=== PATIENT | male | born 1945 | race Caucasian/White ===

== ENCOUNTER → 2016-12-27 | Outpatient (CLI) | payer MEDICARE, OTHER ==
[~2016-12-27] MED LIST: AMLO5TAB2 PO; ASP325T PO; ASPI-999 PO; FOSI40TA2 PO; HCT25T PO; NEBI20TA2 PO; OMEG1CAP77 PO; PRV20T PO; UBID100C27 PO
--- OUTSIDE RECORDS SUMMARY | 2016-12-27 13:31 | XMS REPORT | Continuity of Care Document ---
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 Medications Current Home Medications Medication Dose Units Route Directions Days/Qty Instructions Start Date Nebivolol Hcl 20 Mg 20 Mg Oral Daily 04/03/12 Amlodipine Besylate (Norvasc 5 Mg) 5 Mg 5 Mg Oral Daily 04/03/12 Pravastatin Sod 20 Mg 20 Mg Oral Daily 04/03/12 Ubidecarenone 100 Mg 100 Mg Oral Daily 04/03/12 [place]-3/Dha/Epa/Fish Oil 1 Each 1 Each Oral Four Times Daily Aspirin 81 Mg 81 Mg Oral Daily 06/23/16 Past Home Medications Medication Directions Ordered Status Hydrochlorothiazide 25 Mg Tab, 25 Mg Oral Daily 04/03/12 Discontinued Fosinopril Sodium 40 Mg Tablet, 40 Mg Oral Daily 04/03/12 Discontinued Aspirin 325 Mg Tab, 325 Mg Oral Daily 04/03/12 Discontinued Social History Social History Problem Response Recorded Date/Time Recent Foreign Travel No 06/29/2016 9:58am Recent Infectious Disease Exposure No 06/29/2016 9:58am Smoking Status Never a Smoker 06/29/2016 9:56am Query Response Start Date Stop Date Smoking Status Never a Smoker Hospital Discharge Instructions Patient Instructions Physician Instructions Plan of Care/Instructions/FU: Follow up with Dr. Pulido in 2-3 weeks Activity as Tolerated: Yes Discharge Diet: No Restrictions Care Plan Patient Instructions:: Follow up with Dr. Pulido in 2-3 weeks Plan of Care Discharge Date 06/29/16 1:20pm Instructions/Education Provided ANESTHESIA INSTRUCTIONS POSTOP COLONOSCOPY EGD-ESOPHAGOGASTRODUODENOSCOPY Prescriptions See Medication Section Functional Status No functional status results. Allergies, Adverse Reactions, Alerts Allergen Type Severity Reaction Status Last Updated Sulfa (Sulfonamide Antibiotics) ([id number]) Allergy Unknown Active Immunizations No immunization records. Vital Signs Acute Vital Signs Vital Response Date/Time Temperature (Fahrenheit) 97.2 degrees F (97.6 - 99.5) 06/29/2016 1:20pm Temperature (Calculated Celsius) 36.39662 degrees C (36.4 - 37.5) 06/29/2016 1:20pm Temperature Source Tympanic 06/29/2016 1:20pm Pulse Rate (adult) 50 bpm (60 - 90) 06/29/2016 1:20pm Respiratory Rate 18 bpm (12 - 24) 06/29/2016 1:20pm O2 Sat by Pulse Oximetry 98 % (88 - 100) 06/29/2016 1:20pm Blood Pressure 158/88 mm Hg 06/29/2016 1:20pm Pain Numeric Pain Scale 0-No Pain 06/29/2016 1:20pm Pain Intensity 0 06/29/2016 1:10pm Height (Feet) 5 feet 06/29/2016 9:56am Height (Inches) 7.00 inches 06/29/2016 9:56am Height (Calculated Centimeters) 170.700742 cm 06/29/2016 9:56am Weight (Pounds) 166 pounds 06/29/2016 9:56am Weight (Ounces) 0.0 oz 06/29/2016 9:56am Weight (Calculated Grams) 97819.33 gm 06/29/2016 9:56am Weight (Calculated Kilograms) 75.554676 kilograms 06/29/2016 9:56am Calculated BMI 26.0 06/29/2016 9:56am Results No known relevant diagnostic tests, laboratory data and/or discharge summary. Procedures Procedure Status Date Provider(s) Esophagogastroduodenoscopy (EGD) Completed 06/29/16 GILMER PULIDO DO Anesthesia for 30 minutes Active 06/29/16 GILMER PULIDO DO Encounters Encounter Location Arrival/Admit Date Discharge/Depart Date Attending Provider [facility]istered [facility] 06/29/16 9:33am GILMER PULIDO DO Departed Clinic [facility] 06/23/16 5:34am 06/23/16 2: 06pm GILMER PULIDO DO
[2016-12-27 14:21] LABS: ALBUMIN 4.3 G/DL (3.2-4.5); BILIRUBIN,TOTAL 0.6 MG/DL (0.1-1.0); CREATININE SERUM 1.65 MG/DL (0.60-1.30); POTASSIUM 3.9 MMOL/L (3.6-5.0); TOTAL PROTEIN 7.1 G/DL (6.4-8.2)
--- NOTE | 2016-12-27 14:33 | Diagnostic Imaging Report ---
EXAMINATION: PA and lateral views of the chest. INDICATION: Carotid artery disease. Hypertension. FINDINGS: The lungs are hyperinflated but clear. The heart size is slightly enlarged. There is no effusion or pneumothorax. The mediastinum and fany appear unremarkable. There are sternotomy wires noted. IMPRESSION: Hyperinflated clear lungs. Borderline cardiomegaly. Dictated by: Dictated on workstation # [id number]
== END ==
LOC: RAD 13:28
PROVIDERS: ATTEND Physician Assistant
DX: I25.10 Atherosclerotic heart disease of native coronary artery without angina pectoris (principal); I65.23 Occlusion and stenosis of bilateral carotid arteries; I10 Essential (primary) hypertension; E78.2 Mixed hyperlipidemia
CPT/HCPCS: 36415; 71020; 80053; 80061

== ENCOUNTER 2017-08-29 09:17 | Outpatient (RCR) | payer MEDICARE, OTHER | END 2017-11-27 | disposition home or self-care (01) | LOC: CARD 09:17 | PROVIDERS: ATTEND Internal Medicine Cardiovascular Disease | DX: I25.10 Atherosclerotic heart disease of native coronary artery without angina pectoris (principal); I65.23 Occlusion and stenosis of bilateral carotid arteries; I10 Essential (primary) hypertension; I27.20 Pulmonary hypertension, unspecified; E78.2 Mixed hyperlipidemia; R07.9 Chest pain, unspecified; D12.6 Benign neoplasm of colon, unspecified | CPT/HCPCS: 93225; 93226 ==

== ENCOUNTER → 2019-04-16 | Outpatient (CLI) | payer MEDICARE, OTHER ==
[~2019-04-16] VITALS: Ht 172.7 cm; Wt 73.0 kg
[~2019-04-16] MED LIST changes: +CATHETER FLUSH 10 ML SYR IV PRN; +REGADENOSON 0.4 MG/5 ML SYR (LEXISCAN) IV ONE
[2019-04-16 09:27] VITALS: BP 152/80
[2019-04-16 09:30] VITALS: BP 149/72
[2019-04-16 09:31] VITALS: BP 151/75
--- NOTE | 2019-04-17 09:01 | ELECTROENCEPHALOPATHY REPORT ---
DATE OF SERVICE: 04/16/2019 LEXISCAN MYOVIEW STRESS TEST REPORT REFERRING PHYSICIAN: INDICATION: Coronary artery disease. Baseline heart rate is 63. Baseline blood pressure 152/80. Baseline EKG is sinus rhythm with no ischemic changes. In summary, the patient was injected with 10.69 mCi of technetium-99 Myoview and the resting images were obtained. Then, the patient received 0.4 mg of Lexiscan followed by 30.6 mCi of technetium-99 Myoview. Throughout the test, there were no EKG changes. The resting and stress images were reviewed and compared in the short axis, horizontal long axis, and vertical long axis views. Review of the images showed diaphragmatic attenuation with good radiotracer uptake, no significant ischemia or infarction was seen. SSS is 1, SDS 1, TID value 1.05. On the gated images, the left ventricle appeared to be normal size with normal contractility. Calculated ejection fraction 59%. CONCLUSION: 1. The patient tolerated Lexiscan well. 2. Diaphragmatic attenuation with no significant ischemia or infarction on SPECT images. 3. Normal left ventricular size with normal contractility. Calculated ejection fraction 59%. Job ID: [id number] DocumentID: [id number] Dictated Date: 04/17/2019 08:32:46 Curb Supervisor Date: 04/17/2019 09:00:31 Dictated By: [place] PIMENTEL MD
== END ==
LOC: CARD 07:57
PROVIDERS: ATTEND Physician Assistant
DX: I25.10 Atherosclerotic heart disease of native coronary artery without angina pectoris (principal); I10 Essential (primary) hypertension; E78.5 Hyperlipidemia, unspecified; I08.3 Combined rheumatic disorders of mitral, aortic and tricuspid valves
CPT/HCPCS: 78452; 93017; 93306

== ENCOUNTER → 2020-04-18 | Outpatient (CLI) | payer MEDICARE, OTHER ==
[~2020-04-18] MED LIST changes: -CATHETER FLUSH 10 ML SYR IV PRN; -REGADENOSON 0.4 MG/5 ML SYR (LEXISCAN) IV ONE
== END ==
LOC: CARD 10:55
PROVIDERS: ATTEND Internal Medicine Cardiovascular Disease
DX: I48.0 Paroxysmal atrial fibrillation (principal); E78.5 Hyperlipidemia, unspecified; I10 Essential (primary) hypertension; I25.10 Atherosclerotic heart disease of native coronary artery without angina pectoris
CPT/HCPCS: 93306

== ENCOUNTER 2020-09-02 16:09 | Observation (INO) | payer MEDICARE, OTHER ==
[~2020-09-02] VITALS: Ht 172.7 cm; Wt 75.7 kg
[2020-09-02] MEDS ORDERED: polyethylene glycoL POWDER 17 GM (MIRALAX) PACK PO PRN (18:15)
[2020-09-02] MEDS ORDERED: ANTACID SUSP 30 ML UDC (MYLANTA) PO PRN (18:15)
[2020-09-02] MEDS ORDERED: ACETAMINOPHEN 325 MG TABLET PO PRN (18:15)
[2020-09-02] MEDS ORDERED: ONDANSETRON 4 MG/2 ML (SDV) Z0FRAN IV PRN (18:15)
[2020-09-02] MEDS ORDERED: NITROGLYCERIN 0.4 MG SL TABS BTL 25'S SL PRN (18:15)
[2020-09-02] MEDS ORDERED: PATIENT MAY USE OWN MEDS, ALL PO SCH ×2 (18:15)
[2020-09-02] MEDS ORDERED: diphenhydrAMINE 25 MG TAB (BENADRYL) PO PRN (18:15)
[2020-09-02] MEDS ORDERED: BISACODYL 10 MG SUPP (DULCOLAX) PR PRN (18:15)
[2020-09-02] MEDS ORDERED: morphine INJ 4 MG/ML 1 ML (VIAL/SYRINGE) IV PRN (18:15)
--- NOTE | 2020-09-02 18:30 | NUR ---
JASON PRITCHETT admitted to room 414-1, with an admitting diagnosis of chest pain, on 09/02/20 from [place], accompanied by [place].JASON PRITCHETT introduced to surroundings, call light, bed controls, phone, TV, temperature control, lights, meal times, smoking policy, visitor policy, side rail policy, bathrooms and showers. Patient Rights given to patient in the handbook. JASON PRITCHETT verbalizes understanding that [facility] is not responsible for the loss or damage to any personal effects or valuables that are kept in the patients posession during their hospitalization. JASON PRITCHETT verbalizes understanding of Interdisciplinary Patient Education. Patient and/or family were informed about the Rapid Response Team and its purpose.
[2020-09-02] MEDS ORDERED: CLOPIDOGREL 75 MG (PLAVIX) TABLET PO NR (18:32)
[2020-09-02] MEDS: NS IV 1000 ML 1,000 ML IV SCH (18:53)
[2020-09-02] MEDS ORDERED: OMEG1CAP13 PO (19:15)
[2020-09-02] MEDS ORDERED: PNT400TCR PO (19:15)
[2020-09-02] MEDS ORDERED: AMLO10TA7 PO (19:15)
[2020-09-02] MEDS ORDERED: ROSU10TA28 PO (19:15)
[2020-09-02] MEDS ORDERED: VITA-272 PO (19:15)
[2020-09-02] MEDS ORDERED: RIVA20TA PO (19:15)
[2020-09-02] MEDS ORDERED: LISI-552 PO (19:15)
[2020-09-02] MEDS ORDERED: FENO160T12 PO (19:15)
[2020-09-02] MEDS ORDERED: DOCU100T2 PO (19:15)
[2020-09-02] MEDS ORDERED: FURO20TA4 PO (19:15)
[2020-09-02] MEDS ORDERED: UBID1CAP53 PO (19:15)
--- NOTE | 2020-09-02 19:16 | NUR ---
SPOKE WITH THE PT (I CALLED HIS ROOM PHONE) HOWEVER HE IS UNSURE OF HIS MEDICATIONS AND WANTED ME TO CONTAC HIS GALA. I CALLED GALA AND WENT THRU THE EXT MED HISTORY TO COMPLETE THE MED REC PENTOXIFYLLINE ER 400MG HAS DIRECTIONS OF 1 TAB TID HOWEVER ACCORDING TO GALA PT WAS NOT ABLE TO TOLERATE THOSE DIRECTIONS AND THEREFORE IS TAKING 1 TAB BID METOPROLOL SUCC 25MG WAS LAST FILLED 06-24-2020 #90/90DS- WHEN I ASKED ABOUT THIS MEDICATION GALA SAID SHE KNEW HE WAS TAKING IT AT ONE POINT BUT DOES NOT THINK PT IS TAKING ANY LONGER (IN HER WORDS "IM NOT SURE IF DR. PIMENTEL OR DR GARCIA STOPPED IT OF IT WE GOOFED AND HAVENT BEEN GIVING IT TO HIM" FOR THIS REASON I DID NOT INCLUDE THIS ON THE MED REC XARELTO 20MG- PT IS GETTING SAMPLES FROM DR. DRAKE OFFICE OTC MEDS: FISH OIL VIT E COQ10 DOCUSATE
[2020-09-02 19:21] VITALS: BP 161/90
[2020-09-02] MEDS ORDERED: ENOXAPARIN 40 MG/0.4 ML (LOVENOX) SYR SC SCH (19:45)
[2020-09-02 20:30] VITALS: BP 174/90
[2020-09-02] MEDS: meTOprolol TARTRATE 25 MG (LOPRESSOR) TABLET PO SCH (20:31)
[2020-09-02] MEDS ORDERED: NON-FORMULARY MEDICATION 1 EA EA (Fenofibrate 160 MG) PO SCH (21:00)
[2020-09-02] MEDS ORDERED: FENOFIBRATE 134 MG (LOFIBRA) CAPSULE PO SCH (22:45)
[2020-09-02] MEDS ORDERED: PENTOXIFYLLINE ER 400 MG (TRENtal) TAB PO SCH (22:45)
[2020-09-02] MEDS ORDERED: RIVAROXABAN 20 MG TABLET (XARELTO) PO SCH (22:45)
[2020-09-02] MEDS ORDERED: DOCUSATE SODIUM 100 MG (COLACE) CAP PO SCH (22:45)
[2020-09-02] MEDS ORDERED: lisINopril 20 MG (PRINIVIL) TABLET PO SCH (22:45)
[2020-09-02] MEDS ORDERED: ROSUVASTATIN 10 MG (CRESTOR) TABLET PO SCH (23:00)
[2020-09-03] VITALS (15 sets, daily range): BP systolic 136–187; BP diastolic 68–96
[2020-09-03] MEDS: NS IV 1000 ML 1,000 ML IV SCH ×5 (03:07→21:47)
[2020-09-03 05:00] LABS: HEMOGLOBIN 12.9 g/dL (13.3-17.7); WHITE BLOOD COUNT 6.9 10^3/uL (4.3-11.0)
[2020-09-03 05:19] LABS: CALCIUM 8.4 MG/DL (8.5-10.1)
[2020-09-03 05:24] LABS: CREATININE SERUM 1.56 MG/DL (0.60-1.30)
--- NOTE | 2020-09-03 08:19 | History & Physical-Hospitalist ---
JEFFERY PRATT,MED STUDENT 09/03/20 0819: History of Present Illness HPI/Chief Complaint Mr. Waterman is a 75yo [facility] patient with a PMH of Afib, HTN and CAD who presents c/o chest discomfort for x4 days. He states that on Friday 08/31 he took a drink of water and felt that "it went down the wrong pipe". He felt like he had to belch, but was unable to. He says the feeling of gas buildup persisted and began to feel like a pressure that he described as "a brick on his chest". He went to the health department in [place] yesterday 09/02, and was told to go to the ED. He says the discomfort was a 2/10 on Tuesday, and has been constant since then and has remained a 2/10. It is non-radiating, and located mostly on the left side of his chest. He did not try any OTC medications, and notes that laying on his left side worsens the discomfort somewhat. He has a history of CABG x4 from 8 years ago, but says he did not have chest discomfort at that time and has never felt this prior to Tuesday. He reports occasional acid reflux but has not had any trouble swallowing solids or liquids. He is a patient of Dr. Greenfield in [place] and follows with Dr. Clark. Source: patient Exam Limitations: no limitations Date Seen 09/03/20 Time Seen by a Provider: 07:15 Attending Physician Chantell Lorenzo MD PCP Albert Greenfield DO Referring Physician Date of Admission Sep 02, 2020 at 18:15 Home Medications & Allergies Home Medications Reviewed patient Home Medication Reconciliation performed by pharmacy medication reconciliations area intelligence technician and/or nursing. Patients Allergies have been reviewed. Allergies Allergies Coded Allergies Sulfa (Sulfonamide Antibiotics) (Verified Allergy, Unknown, 06/23/16) Past Bbpujpv-Efkvxb-Qlcwny Hx Patient Social History Marrital Status: Recreational Drug Use: No Smoking Status: Never a Smoker 2nd Hand Smoke Exposure: Yes Recent Foreign Travel: No Contact w/other who traveled: No Recent Infectious Disease Expo: No Immunizations Up To Date Date of Pneumonia Vaccine: Aug 29, 2012 Seasonal Allergies Seasonal Allergies: Yes Past Medical History Surgeries: CABG (x4), Eye Surgery (Bilateral cataracts), Tonsillectomy Cardiac: Atrial Fibrillation, Coronary Artery Disease, High Cholesterol, Hypertension Musculoskeletal: Chronic Back Pain HEENT: Cataract Hearing Impairment: Denies Family History CAD Over 55 Years Old (Father of [place] at 59yo) Review of Systems Constitutional: No chills, No dizziness, No fever, No weight gain, No weight loss EENTM: vision loss (Poor vision in left eye), hoarseness; No hearing loss, No double vision, No nose congestion, No throat pain Respiratory: No cough, No orthopnea, No short of breath, No wheezing Cardiovascular: see HPI, chest pain; No edema; Hx of Intervention (CABG x4); No palpitations, No syncope Gastrointestinal: No abdominal pain, No constipation, No diarrhea, No dysphagia, No loss of appetite, No nausea, No vomiting Genitourinary: no symptoms reported Musculoskeletal: back pain, joint pain (Knees and ankles) Skin: No lesions, No lumps, No rash Psychiatric/Neurological: Denies Headache; Numbness (Fingers of left hand occasionally); Denies Tingling, Denies Weakness Physical Exam Physical Exam Vital Signs Vital Signs - First Documented 09/02/20 09/02/20 09/02/20 09/03/20 18:30 19:00 19:21 01:58 Temp 36.5 Pulse 77 Resp 20 B/P (MAP) 161/90 Pulse Ox 97 O2 Delivery Room Air FiO2 21 Capillary Refill : Less Than 3 Seconds Height, Weight, BMI Height: 5'8.00" Weight: 161lbs. 0.0oz. 73.872644vg; 25.38 BMI Method: General Appearance: No Apparent Distress, WD/WN Eyes: Bilateral Eye PERRL, Bilateral Eye EOMI HEENT: PERRL/EOMI, Pharynx Normal, Moist Mucous Membranes; No Pharyngeal Erythema, No Tonsillar Exudate Neck: Full Range of Motion, Non Tender, Supple Respiratory: Chest Non Tender, Lungs Clear, No Accessory Muscle Use, No Respiratory Distress; No Crackles, No Wheezing Cardiovascular: Regular Rate, Rhythm, No Edema, No Murmur Gastrointestinal: Normal Bowel Sounds, Non Tender, Soft; No Distended, No Gua rding Extremity: Normal Capillary Refill, Non Tender, No Calf Tenderness, No Pedal Edema Neurologic/Psychiatric: Alert, Oriented x3, No Motor/Sensory Deficits, Normal Mood/Affect Skin: Normal Color, Warm/Dry Results Results/Procedures Labs Laboratory Tests 09/03/20 04:35 Patient resulted labs reviewed. Assessment/Plan Admission Diagnosis Chest pain Assessment and Plan Assessment: Chest pain CAD hx of CABG x4 in 2011 HTN HLD Chronic renal insufficiency Hx of Afib on OAC Plan: Start Lovenox Continue home medications Cardiology consulted NPO per cardiology Plan for heart cath this morning Clinical Quality Measures DVT/VTE Risk/Contraindication: Risk Factor Score Per Nursin RFS Level Per Nursing on Admit: 2=Moderate JONELLE ROCHE DO 09/03/20 2141: History of Present Illness HPI/Chief Complaint No more chest pain Troponin was negative Cardiac Cath revealed coronary stenosis so stent was deployed Had bypass surgery 8 years ago Nitroglycerin did not really help Creatinine 1.56 and is stable Past Wfftout-Tjxrqe-Rppupw Hx Past Med/Social Hx: Reviewed Nursing Past Med/Soc Hx, Reviewed and Corrections made Patient Social History Marrital Status: Review of Systems Constitutional: see HPI Physical Exam Physical Exam General Appearance: No Apparent Distress, Chronically ill Respiratory: Chest Non Tender, Lungs Clear, Normal Breath Sounds, No Accessory Muscle Use, No Respiratory Distress Cardiovascular: Regular Rate, Rhythm, No Edema, No Gallop, No JVD, No Murmur, Normal Peripheral Pulses Assessment/Plan Admission Diagnosis Assessment: Chest pain CAD Cath with stent Admission Status: Inpatient Order (span 2 midnights) Reason for Inpatient Admission: cad with chest pain and cath with stent Diagnosis/Problems Diagnosis/Problems (1) Chest pain Supervisory-Addendum Brief Verification & Attestation Participated in pt care: history, MDM, physical Personally performed: exam, history, MDM, supervision of care Care discussed with: Medical Student Procedures: n/a Results interpretation: Verified all documentation Verification and Attestation of Medical Student E/M Service A medical student performed and documented this service in my presence. I reviewed and verified all information documented by the medical student and made modifications to such information, when appropriate. I personally performed the physical exam and medical decision making. Jonelle Roche, Sep 03, 2020,21:41 JEFFERY PRATT,MED STUDENT Sep 03, 2020 08:19 JONELLE ROCHE DO Sep 03, 2020 21:41
--- NOTE | 2020-09-03 08:33 | NUR ---
THE PT'S SHOULD BE BRINGING HOME MEDS THIS MORNING, HE WOULD LIKE TO WAIT UNTIL HE HEARS FROM HER BEFORE TAKING SCHEDULED MEDS PROVIDED BY [facility]. THIS RN WILL F/U WITH PT AROUND 9AM.
[2020-09-03] MEDS: meTOprolol TARTRATE 25 MG (LOPRESSOR) TABLET PO SCH ×3 (08:57→20:17)
[2020-09-03] MEDS: PENTOXIFYLLINE ER 400 MG (TRENtal) TAB PO SCH ×3 (08:57→20:18)
[2020-09-03] MEDS: DOCUSATE SODIUM 100 MG (COLACE) CAP PO SCH ×3 (08:57→20:18)
[2020-09-03] MEDS: CLOPIDOGREL 75 MG (PLAVIX) TABLET PO SCH (08:57)
[2020-09-03] MEDS: ASPIRIN E.C. 81 MG (ECOTRIN) TAB PO SCH (08:57)
--- NOTE | 2020-09-03 09:12 | NUR ---
PT TO REMAIN NPO PER DR PIMENTEL, ADD ON SENT AND CONSENT SIGNED FOR HEART CATH. ASA AND PLAVIX GIVEN.
[2020-09-03] MEDS ORDERED: NS IV 1000 ML 1,000 ML ONE (09:42)
[2020-09-03] MEDS ORDERED: HEParin (CATH LAB) 2,000 ML IV ONE (09:42)
[2020-09-03] MEDS ORDERED: LIDOCAINE 1% INJ 20 ML 20 ML VIAL ONE ×2 (09:42→13:23)
[2020-09-03] MEDS ORDERED: MIDAZOLAM 5 MG/5 ML (VERSED) VIAL ONE (09:45)
[2020-09-03] MEDS ORDERED: fentaNYL INJECTION 100 MCG/2 ML AMP ONE (09:46)
--- NOTE | 2020-09-03 10:01 | NUR ---
PT TO ORDER PACKER VIA BED. REPORT GIVEN AT BEDSIDE
--- NOTE | 2020-09-03 10:09 | Consultation-Cardiology ---
HPI-Cardiology Cardiology Consultation Date of Consultation 09/03/20 Date of Admission Time Seen by Provider: 10:05 Indication: chest pain HPI 75 years old gentleman with extensive cardiac history, reported that his been having pressure on the left side of his chest persistent, became worse yesterday and went to the emergency room, nitroglycerin did not help, still having mild p ressure on the left side of his chest feeling like a brick on his chest. No shortness of breath, no palpitation, no syncope or near syncopal episodes. No claudications. Home Medications & Allergies Allergies: Coded Allergies: Sulfa (Sulfonamide Antibiotics) (Verified Allergy, Unknown, 06/23/16) Home Medication List Reviewed: Yes AAK-Tcoehx-Fnsizd Hx Patient Social History Marital Status: Recreational Drug Use: No Smoking Status: Never a Smoker 2nd Hand Smoke Exposure: Yes (As a child) Recent Foreign Travel: No Recent Infectious Disease Expo: No Immunizations Up To Date Date of Pneumonia Vaccine: Aug 29, 2012 Past Medical History Discussed below Family Medical History Significant Family History: CAD Over 55 Years Old (Father of [place] at 59yo) Family Medical Hx Noncontributory Review of Systems-General Review of Systems Constitutional: see HPI; No chills, No dizziness, No fever; malaise; No weight gain, No weight loss EENTM: see HPI, no symptoms reported, vision loss (Poor vision in left eye), hoarseness; No hearing loss, No double vision, No nose congestion, No throat pain Respiratory: see HPI; No cough, No orthopnea, No short of breath, No wheezing Cardiovascular: see HPI, chest pain; No edema; Hx of Intervention (CABG x4); No palpitations, No syncope Gastrointestinal: no symptoms reported, see HPI; No abdominal pain, No constipation, No diarrhea, No dysphagia, No loss of appetite, No nausea, No vomiting Genitourinary: no symptoms reported, see HPI Musculoskeletal: see HPI, back pain, joint pain (Knees and ankles) Skin: see HPI; No lesions, No lumps, No rash Psychiatric/Neurological: Denies Headache; Numbness (Fingers of left hand occasionally); Denies Tingling, Denies Weakness Reviewed Test Results Reviewed Test Results Lab Laboratory Tests Test 09/02/20 19:50 09/03/20 00:17 10/7/20 04:35 Range/Units Troponin I < 0.028 < 0.028 <0.028 NG/ML White Blood Count 6.9 4.3-11.0 10^3/uL Red Blood Count 4.24 L 4.30-5.52 10^6/uL Hemoglobin 12.9 L 13.3-17.7 g/dL Hematocrit 39 L 40-54 % Mean Corpuscular Volume 92 80-99 fL Mean Corpuscular Hemoglobin 30 25-34 pg Mean Corpuscular Hemoglobin Concent 33 32-36 g/dL Red Cell Distribution Width 12.3 10.0-14.5 % Platelet Count 208 130-400 10^3/uL Mean Platelet Volume 9.0 9.0-12.2 fL Sodium Level 141 135-145 MMOL/L Potassium Level 4.0 3.6-5.0 MMOL/L Chloride Level 109 H 98-107 MMOL/L Carbon Dioxide Level 22 21-32 MMOL/L Anion Gap 10 5-14 MMOL/L Blood Urea Nitrogen 27 H 7-18 MG/DL Creatinine 1.56 H 0.60-1.30 MG/DL Estimat Glomerular Filtration Rate 43 BUN/Creatinine Ratio 17 Glucose Level 85 70-105 MG/DL Calcium Level 8.4 L 8.5-10.1 MG/DL Triglycerides Level 109 <150 MG/DL Cholesterol Level 152 < 200 MG/DL LDL Cholesterol Direct 109 1-129 MG/DL VLDL Cholesterol 22 5-40 MG/DL HDL Cholesterol 32 L 40-60 MG/DL Physical Exam Physical Exam Vital Signs Vital Signs - First Documented 09/02/20 09/02/20 09/02/20 09/03/20 18:30 19:00 19:21 01:58 Temp 36.5 Pulse 77 Resp 20 B/P (MAP) 161/90 Pulse Ox 97 O2 Delivery Room Air FiO2 21 Capillary Refill : Less Than 3 Seconds Height, Weight, BMI Height: 5'8.00" Weight: 161lbs. 0.0oz. 73.713119oh; 25.38 BMI Method: General Appearance: No Apparent Distress, WD/WN Eyes: Bilateral Eye PERRL, Bilateral Eye EOMI HEENT: PERRL/EOMI, Pharynx Normal, Moist Mucous Membranes; No Pharyngeal Erythema, No Tonsillar Exudate Neck: Full Range of Motion, Non Tender, Supple Respiratory: Chest Non Tender, Lungs Clear, No Accessory Muscle Use, No Respiratory Distress; No Crackles, No Wheezing Cardiovascular: Regular Rate, Rhythm, No Edema, No Murmur Gastrointestinal: Normal Bowel Sounds, Non Tender, Soft; No Distended, No Gua rding Extremity: Normal Capillary Refill, Non Tender, No Calf Tenderness, No Pedal Edema Neurologic/Psychiatric: Alert, Oriented x3, No Motor/Sensory Deficits, Normal Mood/Affect Skin: Normal Color, Warm/Dry A/P-Cardiology Admission Diagnosis Chest pain Coronary artery disease Paroxysmal atrial fibrillation Hypertension Assessment/Plan Chest pain resembling angina, extensive cardiac history, still having active chest pain cannot tolerate having stress test, I will proceed with left heart catheterization possible PTCA Coronary artery disease history of CABG 4 done in 2011 using MCKNIGHT to LAD, vein graft to the obtuse marginal, diagonal and posterior descending artery, last stress test was done in March 2019 showing no significant abnormality, planning to proceed with cardiac catheterization Paroxysmal atrial fibrillation underwent cryoablation in March [address] Schumacher, has been doing well since then Hypertension, restart home medication and monitor blood pressure Chronic renal insufficiency, receiving IV fluid, continue to monitor renal function Sinus node dysfunction with tachycardia/bradycardia syndrome, frequent APCs and bigeminy multiple PAT's, underwent ablation in 2017. Following with [facility] in . Continue to monitor Hyperlipidemia, continue to monitor lipids History of carotid stenosis, carotid endarterectomy done in [place], last carotid ultrasound done in March 2019. Continue to monitor Pulmonary hypertension with PA pressure 45 mmHg. Continue to monitor Clinical Quality Measures DVT/VTE Risk/Contraindication: Risk Factor Score Per Nursin RFS Level Per Nursing on Admit: 2=Moderate [place] PIMENTEL MD Sep 03, 2020 10:09
--- NOTE | 2020-09-03 10:10 | Cardiac Procedure Note-CS/ASA ---
Pre-Procedure Note Pre-Op Procedure Note H&P Reviewed The H&P was reviewed, patient examined and no changes noted. Date H&P Reviewed: Sep 03, 2020 Time H&P Reviewed: 10:09 Conscious Sedation Pre-Proced Time 10:10 ASA Score 3 For ASA 3 and 4: Consider anesthesia and medical clearance. Also, for patients with a history of failed moderate sedation consider anesthesia. Airway Lungs Heart ASA score ASA 1: a normal healthy patient ASA 2: a patient with a mild systemic disease (mid diabetes, controlled hypertension, obesity x ASA 3: a patient with a severe systemic disease that limits activity (angina, COPD, prior Myocardial infarction) ASA 4: a patient with an incapacitating disease that is a constant threat to life (CHF, renal failure) ASA 5: a moribund patient not expected to survive 24 hrs. (ruptured aneurysm) ASA 6: a declared brain- patient whose organs are being harvested. For emergent operations, add the letter E after the classification Mallampati Classification Grade 3 Sedation Plan Analgesia, Amnesia, Plan communicated to team members, Discussed options with patient/fam, Discussed risks with patient/fam The patient is an appropriate candidate to undergo the planned procedure, sedation, and anesthesia. The patient immediately re-assessed prior to indication. [place] PIMENTEL MD Sep 03, 2020 10:10
[2020-09-03] MEDS ORDERED: HEParin 1000 UNIT/ML (10ML VIAL) FOR BOLUS ONE (10:21)
[2020-09-03] MEDS ORDERED: NITRO DRIP 25000 MCG/D5W 250 ML IV ONE (10:21)
[2020-09-03] MEDS ORDERED: EPTIFIBATIDE BOLUS 0 ML IV ONE (10:21)
[2020-09-03] MEDS ORDERED: CLOPIDOGREL 300 MG (PLAVIX) TABLET PO ONE (10:51)
[2020-09-03] MEDS ORDERED: ASPIRIN 325 MG (5 GR) TABLET ONE (10:51)
[2020-09-03] MEDS ORDERED: PATIENT MAY USE OWN MEDS, ALL PO SCH (11:00)
--- NOTE | 2020-09-03 11:09 | Cardiac Cath Report ---
Cardiac Cath Report Physician (s)/Office Aide (s) Physician INDIANA PIMENTEL MD Pre-Procedure Diagnosis Pre-Procedure Diagnosis: unstable angina Post-Procedure Note Procedure Start Date: Sep 03, 2020 Name of Procedure: Left heart catheterization Vein graft angiogram MCKNIGHT angiogram Stenting of the vein graft to the diagonal artery Stenting of the vein graft to the obtuse marginal branch Findings/Procedure Note PROCEDURE NOTE: 75 years old gentleman with history of coronary artery disease, CABG, admitted with active chest pain, EKG did not show any acute abnormality, scheduled for cardiac catheterization possible PTCA After explaining the procedure to the patient, all pros and cons were explained, all questions were answered. The patient signed the consent and then he was placed on the cardiac catheterization laboratory. Groin was prepped SL fashion local anesthesia was used. Sheath placed in the artery. Serenity right and left catheter were used to access the coronary system.Vein Graft evaluated. MCKNIGHT evaluated. Serenity right was prolapse of the left ventricle, pressure was measured, pullback LV to aorta was measured. Patient has multiple lesions in the vein grafts decision to proceed with percutaneous intervention, 6000 units heparin were given neck LCV guide was used advanced to the vein graft to the diagonal artery, BMW wire a dvanced distally, patient had 90 percent stenosis in the middle of the vein graft predilated location with emerge 3.5 balloon and then deployment of resolute integrity 4 x 18 mm under 10 xuan expanded to 4.1 with excellent results. Wire was retracted and the same guide was used to intubate the vein graft to the obtuse marginal branch, has severe distal stenosis, primary stenting using resolute integrity 3 x 12 mm deployed under 12 xuan up to 3.2 mm with excellent results At the end of the procedure the sheath was removed. Closure device was used FINDINGS: Hemodynamics LV 133/14, end diastolic pressure 14 Aorta 141/68 mean of 101 ANATOMY: Left Main has severe stenosis Left Anterior Descending is totally occluded, MCKNIGHT to LAD has very slow flow and very small artery, the vein graft to the diagonal artery has severe stenosis successful intervention with deployment of resolute integrity 4 x 18 with excellent results Left Circumflex is occluded, the vein graft to the obtuse marginal branch has severe stenosis, successful intervention with deployment of resolute integrity 3 x 12 mm with excellent results Right Coronory Artery is severely diseased, vein graft to the right coronary a rtery is patent MCKNIGHT evaluation showed very small MCKNIGHT with sluggish flow to the distal LAD Vein Graft evaluation showed 3 vein grafts The upper vein graft is the vein graft to the obtuse marginal branch has severe stenosis distally successful deployment of resolute integrity 3 x 12 mm drug- eluting stent expanded to 3.2 mm with excellent results The middle vein graft is the vein graft to the diagonal artery, has severe stenosis at the midportion successful predilatation with 3.5 emerge balloon then deployment of resolute integrity 4 x 18 mm expanded to 4.1 mm with excellent results The lower vein graft is the vein graft to the right coronary artery which is patent with no significant disease LV Gram was not done, pressure was measured CONCLUSION: 1. Severe [place] coronary artery disease, history of CABG 2. Very small small MCKNIGHT with sluggish flow in the LAD nonobstructive disease 3. Patent vein graft to the right coronary artery 4. Severe stenosis in the mid portion of the vein graft to the diagonal artery with deployment of resolute integrity 4 x 18 mm expanded to 4.1 mm with excellent results 5. Severe stenosis at the distal portion of the vein graft to the obtuse marginal branch with deployment of resolute integrity 3 x 12 mm expanded to 3.2 mm with excellent results 6. Normal left ventricular end-diastolic pressure 7. Patient is known to have renal artery stenosis, was not evaluated on this study due to underlying renal insufficiency and limit the amount of contrast used DISCUSSION AND RECOMMENDATION: Patient will continue on aspirin and Plavix, he is currently on Xarelto. I will continue monitoring will consider implantation of a loop recorder and discontinuation of Xarelto if no further episode of atrial fibrillation noted Anesthesia Type: Conscious Sedation Estimated blood loss (mL): 35 ml Contrast Amount: 100 ml Total Radiation Dose: 1329 mGy Post-Procedure Diagnosis Post-operative diagnosis: Unstable angina Coronary artery disease Hypertension Hyperlipidemia INDIANA PIMENTEL MD Sep 03, 2020 11:09
--- NOTE | 2020-09-03 11:44 | NUR ---
All personal belongings taken to 5th floor (508) and placed in cabinet per RN's request.
--- NOTE | 2020-09-03 13:42 | Implantation of Loop Monitor ---
Implant of Loop Monitior IMPLANTATION OF LOOP MONITOR REPORT DATE OF PROCEDURE: 09/03/20 PREOP DIAGNOSIS: Paroxysmal atrial fibrillation POSTOP DIAGNOSIS: Paroxysmal atrial fibrillation PROCEDURE DETAILS: The patient is a 75 male with history of paroxysmal atrial fibrillation, had history of ablation, has been maintained on Xarelto, history of CABG, underwent complex stenting to the vein graft to the obtuse marginal and vein graft to the diagonal artery which require dual antiplatelet therapy for at least a year. We discussed the management plan, I would like to stop Xarelto if no further epi sode of atrial fibrillation were noted, we will proceed with implantation of loop recorder for long-term surveillance. Therefore implantable loop recorder was discussed and agreed with the patient. Informed consent was taken. All risks and complications were discussed at length. The patient was draped and prepped in the usual sterile fashion. Local anesthesia was lidocaine, which was given in the substernal area close to the 4th intercostal space. Loop monitor [employer] with serial number [id number] was implanted according to the protocol. Steri-Strips were placed at the end of the procedure. There were no complications and the patient tolerated the procedure well. The device was interrogated with a voltage of. ANESTHESIA: Local anesthesia with lidocaine. COMPLICATIONS: None CONTRAST/FLUOROSCOPY: None CONCLUSION: Successful implantation of fluid monitor with no complication INDIANA PIMENTEL MD Sep 03, 2020 1:42 pm
[2020-09-03] MEDS ORDERED: RIVAROXABAN 15 MG TABLET (XARELTO) PO SCH (17:00)
[2020-09-03] MEDS ORDERED: FENOFIBRATE 160 MG TABLET PO SCH (21:00)
[2020-09-03] MEDS ORDERED: RIVAROXABAN 20 MG TABLET (XARELTO) PO SCH (21:00)
[2020-09-03] MEDS ORDERED: lisINopril 20 MG (PRINIVIL) TABLET PO SCH (21:00)
[2020-09-03] MEDS ORDERED: ROSUVASTATIN 10 MG (CRESTOR) TABLET PO SCH (21:00)
[2020-09-03] MEDS ORDERED: FENOFIBRATE 134 MG (LOFIBRA) CAPSULE PO SCH (21:00)
[2020-09-04] VITALS: BP 161/72
[2020-09-04] MEDS: NS IV 1000 ML 1,000 ML IV SCH ×3 (02:02→10:17)
[2020-09-04 03:52] LABS: HEMOGLOBIN 12.2 g/dL (13.3-17.7); MEAN PLATELET VOLUME 9.2 fL (9.0-12.2)
[2020-09-04 04:00] VITALS: BP 171/84
[2020-09-04 04:21] LABS: CALCIUM 8.4 MG/DL (8.5-10.1)
[2020-09-04 04:25] LABS: CREATININE SERUM 1.58 MG/DL (0.60-1.30)
[2020-09-04 07:30] VITALS: BP 142/74
[2020-09-04] MEDS: CLOPIDOGREL 75 MG (PLAVIX) TABLET PO SCH (08:10)
[2020-09-04] MEDS: ASPIRIN E.C. 81 MG (ECOTRIN) TAB PO SCH (08:11)
[2020-09-04] MEDS: DOCUSATE SODIUM 100 MG (COLACE) CAP PO SCH (08:11)
[2020-09-04] MEDS: PENTOXIFYLLINE ER 400 MG (TRENtal) TAB PO SCH (08:12)
[2020-09-04] MEDS: meTOprolol TARTRATE 25 MG (LOPRESSOR) TABLET PO SCH (08:14)
--- NOTE | 2020-09-04 08:15 | NUR ---
Used patients Personal Metoprolol for morning medication.
[2020-09-04] MEDS ORDERED: ASPI-1238 PO (08:36)
[2020-09-04] MEDS ORDERED: CLOP75TA28 PO (08:36)
[2020-09-04] MEDS ORDERED: EZET10TA17 PO (08:36)
--- NOTE | 2020-09-04 08:37 | Discharge Inst-Post CATH ---
Discharge Inst-CATH/EP Problems Reviewed?: Yes Post Cardiac Cath/EP D/C Inst Follow Up/Plan Appointment with Dr. PIMENTEL's office in one week <b>CARDIAC CATH/EP PROCEDURE DISCHARGE INSTRUCTIONS</b> ACTIVITY * Go Home directly and rest. * Limit activity of the leg (or wrist if it was used) for 7 days including aerobics, swimming, jogging, bicycling, etc. * Restrict stair-climbing for 7 days if possible, if not, climb up with your non-cath leg, then bring together on the same step. * Avoid lifting, pushing, pulling or excessive movement of the affected extremity for 7 days. * Customary sexual activity may be resumed after 2 days-use caution not to use a position that strains or causes pain to the affected extremity. * No driving for 24 hours. * NO SMOKING. * Avoid straining for bowel movements for 7 days. * Gentle walking on level ground is allowed. * Returning to work will depend on the type of procedure and the results. Your doctor will discuss this with you. CALL YOUR DOCTOR FOR ANY OF THE FOLLOWING: *If bleeding from the puncture site occurs- Apply gentle pressure to site with clean cloth and call your doctor or EMS. * If a knot or lump forms under the skin, increases in size, or causes pain. * If bruising appears to be worsening or moving further down your leg instead of disappearing. * Temperature above 101 F. CARE OF YOUR GROIN INCISION; * Bruising or purple discoloration of the skin near the puncture site is common. * You may shower only, no bathtub bathing for 5 days. Be careful to avoid slipping as your leg may feel stiff. * If a closure device was used on your femoral artery, please see the attached guide regarding care of the device and your leg. * Leave dressing on FOR 24 hours. CARE OF YOUR WRIST INCISION; * Bruising or purple discoloration of the skin near the puncture site is common. * You may shower. * DO NOT submerge wrist. * Leave dressing on FOR 24 hours. INDIANA PIMENTEL MD Sep 04, 2020 8:37 am
--- NOTE | 2020-09-04 08:40 | Cardiology Progress Note ---
Subjective Date Seen by Provider: Sep 04, 2020 Time Seen by Provider: 08:38 Subjective/Events-last exam Patient is laying down in bed, feeling better. No new complaint, no further episode of chest pain, groin is healed well Review of Systems General: No Chills, No Night Sweats, No Fatigue, No Malaise, No Appetite, No Other HEENT: No Head Aches, No Visual Changes, No Eye Pain, No Ear Pain, No Dysphasia, No Sinus Congestion, No Post Nasal Drip, No Sore Throat, No Other Pulmonary: No Dyspnea, No Cough, No Pleuritic Chest Pain, No Other Cardiovascular: No: Chest Pain, Palpitations, Orthopnea, Paroxysmal Noc. Dyspnea, Edema, Lt Headedness, Other Objective-Cardiology Exam Last Set of Vital Signs Vital Signs 09/03/20 09/04/20 01:58 07:30 Temp 36.8 Pulse 74 Resp 18 B/P (MAP) 142/74 (96) Pulse Ox 97 O2 Delivery Room Air FiO2 21 Capillary Refill : Less Than 3 Seconds I&O Intake and Output 09/04/20 00:00 Intake Total 1750 ml Output Total 1000 ml Balance 750 ml Intake Oral 750 ml IV Total 1000 ml Output Urine Total 1000 ml # Voids 5 General: Alert, Oriented X3, Cooperative HEENT: Atraumatic, PERRLA Neck: Supple, No JVD, No Thyromegaly Lungs: Clear to Auscultation, Normal Air Movement Heart: Regular Rate, Normal S1, Normal S2, No Murmurs Abdomen: Normal Bowel Sounds, Soft, No Tenderness, No Hepatosplenomegaly, No Masses Extremities: No Clubbing, No Cyanosis, No Edema, Normal Pulses, No Tenderness/Swelling Skin: No Rashes, No Breakdown, No Significant Lesion Neuro: Normal Gait, Normal Speech, Strength at 5/5 X4 Ext, Normal Tone, Sensati on Intact Psych/Mental Status: Mental Status NL, Mood NL Results Lab Laboratory Tests 09/04/20 02:58 A/P-Cardiology Admission Diagnosis Chest pain Coronary artery disease Paroxysmal atrial fibrillation Hypertension Assessment/Plan Unstable angina, resolved after intervention. Doing well. Coronary artery disease history of CABG 4 done in 2011 using MCKNIGHT to LAD, vein graft to the obtuse marginal, diagonal and posterior descending artery, last stress test was done in March 2019 showing no significant abnormality, cardiac catheterization was carried out on September 03, 2020 he had small MCKNIGHT with sluggish flow, underwent stenting to the vein graft to the diagonal artery using 4 x 18 drug-eluting stent and stenting of the vein graft to the obtuse marginal using 3 x 12 drug-eluting stent with excellent results, symptoms relieved Paroxysmal atrial fibrillation underwent cryoablation in [address] Schumacher, has been doing well, I proceeded with loop implantation and di scontinued Xarelto due to the fact that he will need to be on aspirin and Plavix. Status post loop recorder implantation and we'll continue monitoring and evaluate the need for any oral anticoagulation in the future Hypertension, continue on home medication monitor Hyperlipidemia, I will add Zetia to his current medication monitor Chronic renal insufficiency, receiving IV fluid, continue to monitor renal function Sinus node dysfunction with tachycardia/bradycardia syndrome, frequent APCs and bigeminy multiple PAT's, underwent ablation in 2017. Following with [facility] in . Continue to monitor History of carotid stenosis, carotid endarterectomy done in [place], last car otid ultrasound done in March 2019. Continue to monitor Pulmonary hypertension with PA pressure 45 mmHg. Continue to monitor Clinical Quality Measures DVT/VTE Risk/Contraindication: Risk Factor Score Per Nursin RFS Level Per Nursing on Admit: 2=Moderate INDIANA PIMENTEL MD Sep 04, 2020 08:40
--- NOTE | 2020-09-04 10:26 | Discharge Summary ---
Discharge Summary Hospital Course Was the Problem List Reviewed?: Yes Problems/Dx: (1) Chest pain Hospital Course Date of Admission: Sep 02, 2020 at 18:15 Admission Diagnosis : Family Physician/Provider: Albert Greenfield DO Date of Discharge: 09/04/20 Discharge Diagnosis: Angina, impending ACS, cardiac cath s/p stent Hospital Course: Brief course after admitted troponins negative and Cardiology consulted and underwent cath with stent placement. Patient dc improved condition Labs and Pending Lab Test: Laboratory Tests 09/04/20 02:58: White Blood Count 8.0, Red Blood Count 4.02L, Hemoglobin 12.2L, Hematocrit 37L, Mean Corpuscular Volume 92, Mean Corpuscular Hemoglobin 30, Mean Corpuscular Hemoglobin Concent 33, Red Cell Distribution Width 12.1, Platelet Count 212, Mean Platelet Volume 9.2, Sodium Level 139, Potassium Level 4.0, Chloride Level 108H, Carbon Dioxide Level 20L, Anion Gap 11, Blood Urea Nitrogen 26H, Creatinine 1.58H, Estimat Glomerular Filtration Rate 43, BUN/Creatinine Ratio 16, Glucose Level 92, Calcium Level 8.4L Home Meds Active Zetia (Ezetimibe) 10 Mg Tablet 10 Mg PO DAILY Aspirin EC (Aspirin) 81 Mg Tablet.dr 81 Mg PO DAILY Clopidogrel (Clopidogrel Bisulfate) 75 Mg Tablet 75 Mg PO DAILY Reported Vitamin E (Vitamin E Mixed) 400 Unit Capsule 400 Unit PO BID Docusate Sodium 100 Mg Tablet 100 Mg PO BID Co Q-10 100 mg Softgel (Ubidecarenone/Vit E Acetate) 1 Each Capsule 1 Each PO DAILY Fish Oil 1,000 mg Softgel ([place]-3 Fatty Acids/Fish Oil) 1 Each Capsule 2 Each PO BID Rosuvastatin Calcium 10 Mg Tablet 10 Mg PO HS Fenofibrate 160 Mg Tablet 160 Mg PO HS Lisinopril 20 Mg Tablet 20 Mg PO HS Amlodipine Besylate 10 Mg Tablet 10 Mg PO DAILY Furosemide 20 Mg Tablet 20 Mg PO DAILY Pentoxifylline 400 Mg Tablet.er 400 Mg PO BID Assessment/Pt Instructions PCP and Cardiology 1 week Discharge Planning: <30 minutes discharge planning Discharge Physical Examination Vital Signs Vital Signs Date Time Temp Pulse Resp B/P (MAP) Pulse Ox O2 Delivery O2 Flow Rate FiO2 09/04/20 07:30 36.8 74 18 142/74 (96) 97 Room Air 09/03/20 01:58 21 General Appearance: No Apparent Distress, WD/WN, Chronically ill Allergies: Coded Allergies: Sulfa (Sulfonamide Antibiotics) (Verified Allergy, Unknown, 06/23/16) Discharge Summary Date of Admission Sep 02, 2020 at 18:15 Date of Discharge Discharge Date: Sep 04, 2020 Admission Diagnosis Assessment: Chest pain CAD Cath with stent Discharge Diagnosis (1) Chest pain Clinical Quality Measures DVT/VTE Risk/Contraindication: Risk Factor Score Per Nursin RFS Level Per Nursing on Admit: 2=Moderate DENA ROCHE DO Sep 04, 2020 10:26
--- NOTE | 2020-09-04 13:31 | Progress Note ---
JEFFERY PRATT,BAMBI STUDENT 09/04/20 1331: Progress Note Hospital Course: Mr. Waterman is a 75yo male patient with a PMH of Afib, HTN, and CAD who presented on 09/02 with chest discomfort. He had started to notice a pressure t hat he described as "a brick on my chest" and went to walk-in care in [place], and was told to go to the ED. He is a patient of Dr. Clark and has a hx of CABG x4 from 2011, but had not had this chest discomfort since then. He underwent cryoablation for Afib in March 2018 at , and most recently had a stress test in March 2019 which did not show any significant abnormality. On admission to [facility], cardiology was consulted and he underwent a heart cath, which showed severe stenosis of the vein grafts to the diagonal and obtuse marginal arteries, and x2 stents were placed. A loop recorder was also placed. He was then transferred to cardiac step-down, and reported no further discomfort. On exam prior to discharge, he reported no further questions or concerns, and denied any dizziness, chest pain, palpitations, syncope, SOB, n/v/d. Per cardiology, he will stop Xarelto and start Aspirin and Plavix, and resume home HTN medication. JONELLE ROCHE DO 09/04/20 2244: Supervisory-Addendum Brief Verification & Attestation Participated in pt care: history, MDM, physical Personally performed: exam, history, MDM, supervision of care Care discussed with: Medical Student Procedures: n/a Results interpretation: Verified all documentation Verification and Attestation of Medical Student E/M Service A medical student performed and documented this service in my presence. I reviewed and verified all information documented by the medical student and made modifications to such information, when appropriate. I personally performed the physical exam and medical decision making. Jonelle Roche Sep 04, 2020,22:44 JEFFERY PRATT,BAMBI STUDENT Sep 04, 2020 13:31 JONELLE ROCHE DO Sep 04, 2020 22:44
== END 2020-09-04 11:10 | disposition home or self-care (01) ==
LOC: 4TH 18:15 → CSD 09-03 10:00
PROVIDERS: ADMIT Family Medicine; ATTEND Family Medicine
DX: I25.110 Atherosclerotic heart disease of native coronary artery with unstable angina pectoris (principal); E78.5 Hyperlipidemia, unspecified; I48.0 Paroxysmal atrial fibrillation; I12.9 Hypertensive chronic kidney disease with stage 1 through stage 4 chronic kidney disease, or unspecified chronic kidney disease; N18.9 Chronic kidney disease, unspecified; E78.00 Pure hypercholesterolemia, unspecified; Z79.82 Long term (current) use of aspirin; Z79.899 Other long term (current) drug therapy; Z79.01 Long term (current) use of anticoagulants; Z88.2 Allergy status to sulfonamides; Z95.5 Presence of coronary angioplasty implant and graft; Z95.1 Presence of aortocoronary bypass graft
CPT/HCPCS: 33285; 80048 ×2; 80061; 84484 ×2; 85027 ×2; 93005 ×3; 93459; C1725; C1760; C1764; C1769; C1874 ×2; C1887; C1894; C9604; C9605; 36415

== ENCOUNTER 2021-11-24 05:39 | Outpatient (CLI) | payer MEDICARE, OTHER ==
[~2021-11-24] VITALS: Ht 167.7 cm; Wt 78.0 kg
[~2021-11-24 05:39] MED LIST changes: +AMLO-251 PO; +ASPI-1238 PO; +CLOP75TA28 PO; +DOCU100T2 PO; +EZET10TA17 PO; +FENO160T12 PO; +FURO20TA4 PO; +LISI20TA26 PO; +OMEG1CAP13 PO; +PNT400TCR PO; +RIVA20TA PO; +ROSU10TA28 PO; +UBID1CAP53 PO; +VITA-272 PO
[2021-11-25] MEDS ORDERED: RIVA20TA PO (09:56)
== END 2021-11-25 13:03 | disposition home or self-care (01) ==
LOC: PREOP 05:39
PROVIDERS: ATTEND Surgery
DX: Z01.818 Encounter for other preprocedural examination (principal)

== ENCOUNTER → 2021-12-01 | Day surgery (SDC) | payer MEDICARE, OTHER ==
[~2021-12-01] VITALS: Ht 168 cm; Wt 78.0 kg
[~2021-12-01] MED LIST changes: +LACTATED RINGERS 1,000 ML IV STA; +PROPOFOL INJECTION 50 ML IV ONE
--- NOTE | 2021-12-01 12:48 | Progress Note-Pre Operative ---
Pre-Operative Progress Note H&P Reviewed The H&P was reviewed, patient examined and no changes noted. Date Seen by Provider: Dec 01, 2021 Time Seen by Provider: 12:48 Date H&P Reviewed: Dec 01, 2021 Time H&P Reviewed: 12:48 Pre-Operative Diagnosis: history of polyps GILMER PULIDO DO Dec 01, 2021 12:48
[2021-12-01 12:50] VITALS: BP 150/78
[2021-12-01 13:25] VITALS: BP 134/75
--- NOTE | 2021-12-01 13:25 | Progress Note-Post Operative ---
Post-Operative Progess Note Surgeon (s)/Facility Supervisor (s) Surgeon GILMER PULIDO DO Facility Supervisor: na Pre-Operative Diagnosis history of polyps Post-Operative Diagnosis diverticulosis, int hemorrhoids Procedure & Operative Findings Date of Procedure 12/01/21 Procedure Performed/Findings colonoscopy Anesthesia Type per supervisor spring up Estimated Blood Loss Estimated blood loss (mL): none Specimens/Packing Specimens Removed na GILMER PULIDO DO Dec 01, 2021 13:25
--- NOTE | 2021-12-01 13:26 | Discharge Inst-Simple/Standard ---
Discharge Inst-Standard Patient Instructions/Follow Up Plan of Care/Instructions/FU: follow up dr. cornejo on as needed basis. Activity as Tolerated: Yes Discharge Diet: Regular Diet (high fiber) GILMER CORNEJO DO Dec 01, 2021 13:26
[2021-12-01 13:33] VITALS: BP 126/64
--- NOTE | 2021-12-01 13:52 | Anesthesia-General Post-Op ---
MAC Patient Condition Mental Status/LOC: Same as Preop Cardiovascular: Satisfactory Nausea/Vomiting: Absent Respiratory: Satisfactory Pain: Controlled Complications: Absent Post Op Complications Complications None Follow Up Care/Instructions Patient Instructions None needed. Anesthesiology Discharge Order Discharge Order Patient is doing well, no complaints, stable vital signs, no apparent adverse anesthesia problems. No complications reported per nursing. DAWIT LINDO CRNA Dec 01, 2021 13:52
[2021-12-01 14:00] VITALS: BP 143/80
--- NOTE | 2021-12-01 17:49 | OPERATIVE REPORT ---
DATE OF SERVICE: 12/01/2021 PREOPERATIVE DIAGNOSIS: History of polyps. POSTOPERATIVE DIAGNOSES: Diverticulosis and internal hemorrhoid. PROCEDURE PERFORMED: Colonoscopy. SURGEON: Gilmer Rivera DO ANESTHESIA: Per WAREHOUSE TEAM LEADER. ESTIMATED BLOOD LOSS: None. COMPLICATIONS: None. INDICATIONS FOR PROCEDURE: The patient is a 76-year-old male, who was referred for colonoscopy due to history of colon polyps. He understands the risks and benefits of the procedure and wishes to proceed. Consent was signed in the chart. DESCRIPTION OF PROCEDURE: The patient was taken to endoscopy suite and placed in a left lateral recumbent position. Timeout was performed. Digital rectal exam was performed. No palpable polyps, masses or ulcerations. Scope was inserted in the rectum and advanced all the way to cecum with minimal difficulty. Prep was adequate. Scope was slowly retracted back. No polyps, masses or ulcerations in the cecum, ascending, transverse, descending and sigmoid colon. Small amount of diverticulosis through the colon. Once in the rectum, scope was retroflexed noting some internal hemorrhoids. No other pathology. Scope was returned to its normal position, slowly withdrawn until completely removed, noting no other pathology. The patient tolerated the procedure well without any complications and taken to the recovery room in stable condition. RECOMMENDATIONS: The patient will need no other colonoscopies unless diagnostic. If he has any change in condition, he should be reevaluated at that time. Otherwise, he can follow up on an as needed basis. CC: Faby Guerra APRN - requested, unable to deliver. Job ID: [id number] DocumentID: [id number] Dictated Date: 12/01/2021 13:28:44 Porter Luggage Date: 12/01/2021 17:49:07 Dictated By: GILMER RIVERA DO
== END ==
LOC: ENDO 12:22
PROVIDERS: ATTEND Surgery
DX: Z12.11 Encounter for screening for malignant neoplasm of colon (principal); K57.30 Diverticulosis of large intestine without perforation or abscess without bleeding; K64.8 Other hemorrhoids; K21.9 Gastro-esophageal reflux disease without esophagitis; I25.119 Atherosclerotic heart disease of native coronary artery with unspecified angina pectoris; I10 Essential (primary) hypertension; E78.5 Hyperlipidemia, unspecified; I48.91 Unspecified atrial fibrillation; Z79.899 Other long term (current) drug therapy; Z95.1 Presence of aortocoronary bypass graft; Z79.82 Long term (current) use of aspirin; Z79.02 Long term (current) use of antithrombotics/antiplatelets

== ENCOUNTER → 2022-04-28 | Outpatient (CLI) | payer MEDICARE, OTHER ==
[~2022-04-28] VITALS: Ht 170 cm; Wt 77.0 kg
[~2022-04-28] MED LIST changes: +CATHETER FLUSH 10 ML SYR IVP PRN; -LACTATED RINGERS 1,000 ML IV STA; -PROPOFOL INJECTION 50 ML IV ONE; +REGADENOSON 0.4 MG/5 ML SYR (LEXISCAN) IV ONE
[2022-04-28 12:44] VITALS: BP 156/81
--- NOTE | 2022-04-28 14:30 | Cardiology Stress Test Report ---
Stress Test Report Date of Procedure/Referring: Date of Procedure: Apr 28, 2022 PCP Albert Greenfield DO Admitting Physician Admitting Physician: Attending Physician: Clarissa Holbrook Indications: HTN Baseline Heart Rate: 59 Baseline Blood Pressure: Blood Pressure Systolic: 156 Blood Pressure Diastolic: 81 Baseline Vitals Vital Signs Date Time Temp Pulse Resp B/P (MAP) Pulse Ox O2 Delivery O2 Flow Rate FiO2 04/28/22 12:44 59 156/81 (106) Baseline EKG: Baseline EKG: NSR Summary After explaining the procedure to the patient, he signed a consent and then brought to the stress nuclear laboratory. Patient received 0.4 mg Lexiscan for stress test, ECG, heart rate and blood pressure were monitored continuously. Resting and stress dose of radio tracer were injected, imaging was acquired and reviewed in short axis, horizontal long axis and vertical long axis views. TID: 1.06 SSS: 2 SDS: 2 EF: 73 1. Patient tolerated Lexiscan well 2. Diaphragmatic attenuation with mild decrease uptake at the inferior apical segment, no significant ischemia or infarction on SPECT images 3. Normal left ventricular size, EF 73% Copy Copies To 1: ALBERT GREENFIELD BASHAR J MD Apr 28, 2022 14:30
== END ==
LOC: CARD 10:00
PROVIDERS: ATTEND Physician Assistant
DX: I11.9 Hypertensive heart disease without heart failure (principal); I34.0 Nonrheumatic mitral (valve) insufficiency; I25.10 Atherosclerotic heart disease of native coronary artery without angina pectoris
CPT/HCPCS: 78452; 93017; 93306; A9502

== ENCOUNTER → 2022-10-15 | Outpatient (CLI) | payer MEDICARE, OTHER ==
[~2022-10-15] MED LIST changes: +CATHETER FLUSH 10 ML SYR IV PRN; -CATHETER FLUSH 10 ML SYR IVP PRN; +HOLD METFORMIN - RECEIVED CONTRAST 20 ML VIAL IV SCH; +IOHEXOL 350 MG/ML 100 ML (OMNIPAQUE 350) VIAL IV ONE; +NS 100 ML (IVPB) BAG IV ONE; -REGADENOSON 0.4 MG/5 ML SYR (LEXISCAN) IV ONE
[2022-10-15 09:50] LABS: CREATININE SERUM 1.63 MG/DL (0.60-1.30)
--- NOTE | 2022-10-15 18:01 | Diagnostic Imaging Report ---
EXAMINATION: CT angiogram of the neck with contrast. INDICATION: Occlusion and stenosis of bilateral carotid arteries. No comparison is available. TECHNIQUE: After intravenous administration of contrast, thin section axial CT angiography of the neck was performed. Multiple reconstructions were provided including MIP reformats. FINDINGS: The patient is noted to be status post a prior sternotomy. There is advanced irregular calcified and noncalcified plaquing evident within the thoracic aorta. There is no dissection flap evident. There appears to be some ulcerative plaque within the arch. There is atherosclerotic disease at the origins of the great vessels arising from the arch, but there is no significant stenosis. The vertebral artery origins are both patent. The common carotid arteries demonstrate scattered atherosclerotic plaquing without significant stenosis. On the right, there are apparent prior surgical changes of a right-sided endarterectomy. There is no significant residual right-sided internal carotid artery stenosis. On the left, there is more advanced plaquing evident within the left carotid bulb and also advanced plaquing within the left proximal internal carotid artery. Within the bulb itself, this results in approximately 60% stenosis by NASCET criteria. The minimal residual lumen within the proximal left internal carotid artery is measured at 2.8 mm with the more distal ICA having a diameter of 6.3 mm. This is compatible with a 55-60% stenosis. Beyond the bifurcations, there is no additional stenosis or dissection within the internal carotid arteries. The vertebral arteries within the neck demonstrate no findings of high-grade stenosis or dissection. The visualized intracranial contents demonstrate moderate atherosclerotic disease within both of the carotid siphons. Patent flow to the level of the carotid terminus. The intracranial vertebral arteries, and the basilar are patent where visualized. The visualized dural venous sinuses are patent. The soft tissues within the neck demonstrate no acute process. The aerodigestive tract appears appropriately symmetric. The lung apices are clear. Cervical spine demonstrates background degenerative features, most advanced at C6-C7 and to a lesser degree at C5-C6. There is no acute cervical spine abnormality. IMPRESSION: 1. Advanced irregular atherosclerotic plaquing including some apparent ulcerative plaque within the aortic arch. There is no dissection. 2. Apparent previous right-sided carotid endarterectomy with no evidence of recurrent right-sided carotid stenosis or dissection. 3. Plaquing at the left carotid bifurcation resulting in approximately 50% stenosis within the carotid bulb itself and an additional 55-60% stenosis within the proximal left internal carotid artery. 4. No findings of high-grade stenosis or dissection within the vertebral arteries. 5. The visualized intracranial circulation appears intact. Dictated by: Dictated on workstation # [id number]
== END ==
LOC: LAB FS 09:04
PROVIDERS: ATTEND Internal Medicine Cardiovascular Disease
DX: I65.23 Occlusion and stenosis of bilateral carotid arteries (principal)
CPT/HCPCS: 36415; 70498; 82565; 84520; Q9967